=== PATIENT | female | born 2000 | race Caucasian/White ===

== ENCOUNTER → 2021-01-11 | Outpatient (CLI) | payer OTHER, SELFPAY ==
[2021-01-11 08:35] VITALS: BMI 30.8
[2021-01-13 12:56] LABS: HPV Reflexed? NOT INDICATED
== END | disposition home or self-care (01) ==
LOC: LABSPEC 12:29
PROVIDERS: PCP Family Medicine; Referring Provider Obstetrics & Gynecology; Visit Provider Obstetrics & Gynecology
DX: Z12.4 Encounter for screening for malignant neoplasm of cervix (principal)
CPT/HCPCS: 88175; G0145

== ENCOUNTER → 2023-02-22 | Outpatient (CLI) | payer OTHER, SELFPAY ==
--- NOTE | 2023-02-22 13:57 | US_ITS ---
STUDY: ULTRASOUND BREAST - RIGHT REASON FOR EXAM: Female, 22 years old. Possible right breast lump. TECHNIQUE: Axial and longitudinal images of the RIGHT breast were performed with a high resolution ultrasound transducer. # OF IMAGES: 29 COMPARISON: None. FINDINGS: RIGHT Breast: The upper outer quadrant of the right breast was examined with ultrasound. There is dense fibroglandular tissue. No sonographic abnormality is seen. US/Breast Limited Unilateral IMPRESSION: No sonographic abnormality is seen. ASSESSMENT CATEGORY: BIRADS Category 1: Negative. A letter regarding these results will be sent to the patient by the facility within 30 days. Electronically Signed: Srinivasan Rojas MD at 15:00 EDT ,
== END | disposition home or self-care (01) ==
PROVIDERS: PCP Family Medicine; Referring Provider Obstetrics & Gynecology; Visit Provider Obstetrics & Gynecology
DX: N63.10 Unspecified lump in the right breast, unspecified quadrant (principal)
CPT/HCPCS: 76642

== ENCOUNTER → 2024-01-19 | Outpatient (CLI) | payer OTHER, SELFPAY ==
[2024-01-22 21:07] LABS: Chlamydia By Nucleic Acid AMP Negative (Negative); Gonococcus By Nucleic Acid AMP Negative (Negative)
== END | disposition home or self-care (01) ==
LOC: LABSPEC 17:01
PROVIDERS: PCP Family Medicine; Referring Provider Obstetrics & Gynecology; Visit Provider Obstetrics & Gynecology
DX: Z34.90 Encounter for supervision of normal pregnancy, unspecified, unspecified trimester (principal)
CPT/HCPCS: 87086; 87088; 87491; 87591; 88175; G0145

== ENCOUNTER → 2024-01-30 | Outpatient (CLI) | payer OTHER, SELFPAY ==
[2024-01-30 16:04] LABS: Absolute Lymphocyte Count 2.17 X10^3/uL (0.83-4.51); Basophil# 0.04 X10^3/uL; Basophil% 0.4 % (0-1); Eosinophil# 0.05 X10^3/uL; Eosinophils% 0.6 % (0-5); Hematocrit 37.9 % (37-47); Hemoglobin 12.6 g/dL (12.0-15.0); Lymphocyte # 2.17 X10^3/ul (0.83-4.51); Lymphocyte % 24.1 % (19-41); Mean Corp Hgb Conc 33.2 g/dL (32-36); Mean Corpuscular Hgb 28.3 pg (27.0-32.0); Mean Platelet Vol. 11.1 fl (6.2-12.0); Monocyte# 0.77 X10^3/uL; Monocyte% 8.5 % (0-10); NRBC Flagged by Analyzer 0 % (0-5); Neutrophil # 5.96 X10^3/uL (2.7-7.7); Neutrophil % 66.2 % (47-70); POSITIVE COUNT YES; Platelet Count 231 K/mm3 (150-450); RBC Distribution Width CV 12.3 % (11.6-14.6); RBC Distribution Width SD 37.9 fl (35.1-43.9); Red Blood Count 4.46 M/mm3 (4.2-5.4)
[2024-01-30 16:08] LABS: Differential Indicated SCAN CRITERIA MET
[2024-01-30 16:30] LABS: Platelet Estimate ADEQUATE (ADEQ)
[2024-01-30 16:31] LABS: Anisocytosis RARE; Red Cell Morphology NORM C+C NORMAL (NORM C&C)
[2024-01-30 16:46] LABS: Hemoglobin A1c 4.8 % (3.8-5.6)
[2024-01-30 17:10] LABS: HIV - WCH Non-Reactive (Nonreactive); Hepatitis B Surface Antigen Non-Reactive (Nonreactive); Hepatitis C Antibody Non-Reactive (Nonreactive); Rubella IgG Reactive (Nonreactive); Syphilis Antibodies Non-reactive
== END | disposition home or self-care (01) ==
LOC: PAVLAB 15:30
PROVIDERS: PCP Family Medicine; Referring Provider Obstetrics & Gynecology; Visit Provider Obstetrics & Gynecology
DX: O99.210 Obesity complicating pregnancy, unspecified trimester (principal); Z3A.00 Weeks of gestation of pregnancy not specified
CPT/HCPCS: 36415; 83036; 85025; 86703; 86762; 86780; 86803; 86850; 86900; 86901; 87340

== ENCOUNTER → 2024-02-12 | Outpatient (CLI) | payer OTHER, SELFPAY ==
[2024-02-12 17:04] LABS: Absolute Lymphocyte Count 2.74 X10^3/uL (0.83-4.51); Absolute Neutrophil Count 5.8 X10^3/uL (2.0-7.7); Basophil# 0.03 X10^3/uL; Basophil% 0.3 % (0-1); Eosinophil# 0.08 X10^3/uL; Eosinophils% 0.9 % (0-5); Hemoglobin 12.1 g/dL (12.0-15.0); Lymphocyte # 2.74 X10^3/ul (0.83-4.51); Lymphocyte % 29.2 % (19-41); Mean Corp Hgb Conc 33.6 g/dL (32-36); Mean Corpuscular Hgb 28.9 pg (27.0-32.0); Mean Corpuscular Volume 85.9 fL (81-99); Mean Platelet Vol. 10.5 fl (6.2-12.0); Monocyte# 0.72 X10^3/uL; Monocyte% 7.7 % (0-10); NRBC Flagged by Analyzer 0 % (0-5); Neutrophil # 5.77 X10^3/uL (2.7-7.7); Neutrophil % 61.6 % (47-70); Platelet Count 244 K/mm3 (150-450); RBC Distribution Width CV 12.4 % (11.6-14.6); RBC Distribution Width SD 38.7 fl (35.1-43.9); Red Blood Count 4.19 M/mm3 (4.2-5.4); White Blood Count 9.4 K/mm3 (4.4-11.0)
== END | disposition home or self-care (01) ==
LOC: PAVLAB 15:51
PROVIDERS: PCP Family Medicine; Referring Provider Obstetrics & Gynecology; Visit Provider Obstetrics & Gynecology
DX: Z34.01 Encounter for supervision of normal first pregnancy, first trimester (principal)
CPT/HCPCS: 36415; 85025

== ENCOUNTER → 2024-05-06 | Outpatient (CLI) | payer OTHER, SELFPAY ==
[2024-05-06 09:06] LABS: Absolute Lymphocyte Count 1.66 X10^3/uL (0.83-4.51); Absolute Neutrophil Count 6.6 X10^3/uL (2.0-7.7); Basophil# 0.03 X10^3/uL; Basophil% 0.3 % (0-1); Eosinophil# 0.06 X10^3/uL; Eosinophils% 0.7 % (0-5); Hematocrit 33.7 % (37-47); Lymphocyte # 1.66 X10^3/ul (0.83-4.51); Lymphocyte % 18.3 % (19-41); Mean Corp Hgb Conc 32.6 g/dL (32-36); Mean Corpuscular Hgb 29.1 pg (27.0-32.0); Mean Corpuscular Volume 89.2 fL (81-99); Monocyte# 0.64 X10^3/uL; Monocyte% 7.1 % (0-10); NRBC Flagged by Analyzer 0 % (0-5); Neutrophil # 6.62 X10^3/uL (2.7-7.7); Neutrophil % 72.9 % (47-70); Platelet Count 224 K/mm3 (150-450); RBC Distribution Width CV 13.3 % (11.6-14.6); RBC Distribution Width SD 43.5 fl (35.1-43.9); Red Blood Count 3.78 M/mm3 (4.2-5.4); White Blood Count 9.1 K/mm3 (4.4-11.0)
[2024-05-06 09:47] LABS: Glucose Challenge Gest 1H 50g 104 mg/dL (70-140)
[2024-05-06 10:02] LABS: HIV - WCH Non-Reactive (Nonreactive); Syphilis Antibodies Non-reactive
== END | disposition home or self-care (01) ==
LOC: PAVLAB 08:34
PROVIDERS: PCP Family Medicine; Referring Provider Registered Nurse; Visit Provider Registered Nurse
DX: Z36.89 Encounter for other specified antenatal screening (principal); O99.212 Obesity complicating pregnancy, second trimester; Z3A.21 21 weeks gestation of pregnancy
CPT/HCPCS: 36415; 82950; 85025; 86703; 86780

== ENCOUNTER → 2024-08-01 | Outpatient (CLI) | payer OTHER, SELFPAY | END | disposition home or self-care (01) | LOC: LABSPEC 16:25 | PROVIDERS: PCP Family Medicine; Referring Provider Obstetrics & Gynecology; Visit Provider Obstetrics & Gynecology | DX: Z34.03 Encounter for supervision of normal first pregnancy, third trimester (principal) | CPT/HCPCS: 87077; 87081; 87186 ==

== ENCOUNTER 2024-08-30 07:29 | Inpatient (IN) | payer OTHER, SELFPAY ==
[2024-08-30] VITALS (36 sets, daily range): BP systolic 95–143; BP diastolic 54–89; PULSE 70–137; RESP 15–20; TEMP 36.8–37.3; O2SAT 79–100; BMI 37.3
--- NOTE | 2024-08-30 07:52 | HP.PCM.OB_ITS ---
HPI - General General Date of Admission: 08/30/24 Date of Service: 08/30/24 HPI Narrative AFSHIN HICKMAN, is a 24 F 41 weeks gestation who presents to unit for induction of labor. Maternal Data Information MADDIE Calculator Estimated Delivery Date Method Current WG Current Estimate 08/23/24 LMP (Certain) 41w 0d Final MADDIE: 08/23/24 Final MADDIE Source: US >20 weeks Gestational age: 41.0 PFSH PFSH Home Medications ?Medication ?Instructions ?Recorded ?Last Taken ?Type docosahexaenoic acid 200 mg 200 mg PO 01/05/24 08/29/24 21:00 History capsule ( DHA) 200 mg Allergy/AdvReac Type Severity Reaction Status Date / Time aloe Allergy Mild swelling Verified 08/30/24 07:27 Surgical History H/O wisdom tooth extraction Social History adopted: No household members: spouse current occupational status: employed 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 current occupational exposures/hazards: No pets and animals: Yes pets and animals: dog(s) and farm animals history of recent travel: Yes details: Jul 2023 - [place] out of country: Yes sexually active: Yes Smoking Status: Never smoker alcohol intake: current details: occasionally - not while substance use type: does not use well-balanced diet: daily or most days caffeine: Yes Type: coffee eating out: 1-3 times/week during the past year weight has: increased > 10 lbs what type of physical activity do you participate in: none seatbelt use: always do you feel safe at home: Yes additional social history: : Tomasz Samueltor History 1 Elective abortions Hx Para 0 Spontaneous abortions Hx # Term Pregnancies Ectopic pregnancies Hx # Pregnancies Multiple births # of living children 0 Visit Details Expected Delivery Route/Plan Labor Preferences- CB/BF classes: discussed labor support person: tomasz labor intervention preferences: Open pain management options preferred: [] cut cord/dad catch: cord : yes PP control planned: discussed discussed possible routes of delivery and associated risks: [] special requests: [] Plans Covid status: [] Flu vaccine: declines Tdap vaccine: given Rhogam: na LARC form signed: yes Problem list reviewed and updated with the most current plan of care details and appropriate orders placed. Relevant counseling for the gestational age provided. Continue routine care and follow up unless otherwise noted in visit notes/problem list details OB Flowsheet Initial Weight: 216 lb Date -?-?-?-?-?-?-?-?-?-?-?-?- EGA Weight BP Urine Prot -?-?-?-?-?-?-?-?-?-?-?-?- Glucose FHR FuHt Pres Dilation -?-?-?-?-?--?-?-?-?-?-?-?- Effaced St Visit Note 01/19/24 -?-?-?-?-?-?-?-?-?-?-?-?- 9w 0d 216 lb 8 oz (+8 oz) 128/78 -?-?-?-?-?-?-?-?-?-?-?-?- 168 -?-?-?-?-?-?-?-?-?-?-?-?- JV- undecided ab out NIPT. CRL is consistent with LMP. pap done today 02/14/24 -?-?-?-?-?-?-?-?-?-?-?-?- 12w 5d 214 lb 2 oz (-1 lb 14 oz) 126/82 Negative -?-?-?-?-?-?-?-?-?-?-?-?- Negative 170 -?-?-?-?-?-?-?-?-?-?-?-?- MH-No VB. Active IUP on US. Nausea improved. NIPT pending. Other PN labs ok 03/11/24 -?-?-?-?-?-?-?-?-?-?-?-?- 16w 3d 206 lb (-10 lb) 120/79 Negative -?-?-?-?-?-?-?-?-?-?-?-?- Negative 145 -?-?-?-?-?-?-?-?-?-?-?-?- KW- no vb/crampi ng. AFP declined. Anatomy US 04/04 MFM 04/12/24 -?-?-?-?-?-?-?-?-?-?-?-?- 21w 0d 208 lb (-8 lb) 111/77 Negative -?-?-?-?-?-?-?-?-?-?-?-?- Negative 154 20 -?-?-?-?-?-?-?-?-?-?-?-?- LC- LC- no vb/cramping. has 4 we ek growth for measuring 9 days behind. no other concerns today. 28 week labs ordered. 05/10/24 -?-?-?-?-?-?-?-?-?-?-?-?- 25w 0d 213 lb (-3 lb) 115/77 -?-?-?-?-?-?-?-?-?-?-?-?- 150 24 -?-?-?-?-?-?-?-?-?-?-?-?- Sm- no vb lof go od fm no regular ctx 05/28/24 -?-?-?-?-?-?-?-?-?-?-?-?- 27w 4d 216 lb (+0 oz) 121/81 Negative -?-?-?--?-?-?-?-?-?-?-?-?- Negative 150 28 -?-?-?-?-?-?-?-?-?-?-?-?- KW-no vb/lof/ctx . good fm passed glucose. LARC done. declines flu. possible Tdap next visit. 06/10/24 -?-?-?-?-?-?-?-?-?-?-?-?- 29w 3d 217 lb (+16 oz) 113/77 Negative -?-?-?-?-?-?-?-?-?-?-?-?- Negative 140 29 -?-?-?-?-?-?-?-?-?-?-?-?- KW- no vb/lof/ct x. good fm. tdap next visit. 06/27/24 -?-?-?-?-?-?-?-?-?-?-?-?- 31w 6d 224 lb (+8 lb) 121/73 Negative -?-?-?-?-?-?-?-?-?-?-?-?- Negative 155 32 Transverse -?-?-?-?-?-?-?-?-?-?-?-?- JV- no lof, vagi nal bleeding, or dec fm. tdap today. larc signed. 07/08/24 -?-?-?-?-?-?-?-?-?-?-?-?- 33w 3d 224 lb (+8 lb) 113/72 Negative -?-?-?-?-?-?-?-?-?-?-?-?- Negative 142 33 Breech -?-?-?-?-?-?-?-?-?-?-?-?- MH-No VB, LOF. G ood Fm. 07/23/24 -?-?-?-?-?-?-?-?-?-?-?-?- 35w 4d 226 lb 2 oz (+10 lb 2 oz) 131/80 Negative -?-?-?-?-?-?-?-?-?-?-?-?- Negative 145 35 Cephalic -?-?-?-?-?-?-?-?-?-?-?-?- SM- n vb lof goo d fm no regular ctx scanned at bedside 08/01/24 -?-?-?-?-?-?-?-?-?-?-?-?- 36w 6d 227 lb 4 oz (+11 lb 4 oz) 126/85 Negative -?-?-?-?-?-?-?-?-?-?-?-?- Negative 140 37 Cephalic 1 -?-?-?-?-?-?-?-?-?-?-?-?- KW- Work in for SM. No vb/lof/ctx. GBS today. good fm. 08/07/24 -?-?-?-?-?-?-?-?-?-?-?-?- 37w 5d 225 lb 4 oz (+9 lb 4 oz) 114/77 Negative -?-?-?-?-?-?-?-?-?-?-?-?- Negative 130 37 Cephalic 1 -?-?-?-?-?-?-?-?-?-?-?-?- 60 -2 KW- no vb/ lof/ctx. good fm. 08/16/24 -?-?-?-?-?-?-?-?-?-?-?-?- 39w 0d 228 lb (+12 lb) 126/82 Trace -?-?-?-?-?-?-?-?-?-?-?-?- Negative 135 39 Cephalic 1 .5 -?-?-?-?-?-?-?-?-?-?-?-?- 60 -2 LC- no lof /vb/ctx. good fm. 08/21/24 -?-?-?-?-?-?-?-?-?-?-?-?- 39w 5d 226 lb 6 oz (+10 lb 6 oz) 130/81 -?-?-?-?-?-?-?-?-?-?-?-?- 135 38 Cephalic 1.5 -?-?-?-?-?-?-?-?-?-?-?-?- 70 -2 JV- no lof , vaginal bleeding, or dec fm. no complaints. plan for 41 week IOL. return next monday for pelvic exam if still . 08/28/24 -?-?-?-?-?-?-?-?-?-?-?-?- 40w 5d 230 lb 4 oz (+14 lb 4 oz) 130/83 Negative -?-?-?-?-?-?-?-?-?-?-?-?- Negative 140 40 Cephalic 1 .5 -?-?-?-?-?-?-?-?-?-?-?-?- 70 -1 SM- no vb lof good fm NST FHR Rate Baby A Baseline: 140 Variability:: Moderate Accelerations:: 15 x 15 Decelerations:: None NST Reactive:: Yes FHR Category:: Category I Uterine Activity:: irregular ROS Constitutional Constitutional: Denies change in weight, fatigue, fever(s), headache(s), poor appetite or weakness Eyes Eyes: Denies blurry vision, change in vision, floaters, seeing flashes or spots in vision ENT HEENT: Denies dizziness, headache(s), loss taste/smell or sore throat Cardiovascular Cardiovascular: Denies chest pain, dizziness, dyspnea, irregular heart rhythm, lightheadedness, palpitations or rapid heart rate Respiratory/Chest Respiratory/Chest: Denies change in mental status, chest tightness, cough, dyspnea or breast pain Gastrointestinal Gastrointestinal: Denies anorexia, chewing difficulty, constipation, diarrhea or weight changes Genitourinary Genitourinary: Denies difficulty urinating, dysuria, flank pain, genital pain, urinary frequency or urinary urgency Musculoskeletal Musculoskeletal: Denies back pain, difficulty walking, extremity pain, joint pain, muscle cramps or muscle weakness Integumentary Integumentary: Denies lesions or unusual bruising Neurologic Neurologic: Denies abnormal movements, abnormal speech, dizziness, numbness, seizure-like activity, syncope or weakness Psychiatric Psychiatric: Denies behavioral changes, change in appetite, confusion, depression, homicidal ideation, suicidal ideation or suicidal thoughts Endocrine Endocrinology: Denies excessive sweating, polydipsia or polyuria Hematologic/Lymphatic Hematologic/Lymphatic: Denies anemia Allergic/Immunologic Allergic/Immunologic: Denies itchy eyes, lip swelling, throat swelling, tongue swelling or wheezing Vital Signs Vital Signs Vital Signs: 08/30/24 07:21 08/30/24 07:21 08/30/24 07:21 Temperature Temperature Source Temporal Pulse Rate 104 H Respiratory Rate Blood Pressure 142/86 H BP Systolic 142 BP Diastolic 86 Pulse Ox 08/30/24 07:21 08/30/24 07:21 08/30/24 07:21 Temperature 99.0 F Temperature Source Pulse Rate Respiratory Rate 16 Blood Pressure BP Systolic BP Diastolic Pulse Ox 98 Weight Weight: 231 lb 7.766 oz Body Mass Index (BMI) 37.3 Physical Exam Const alert, oriented x3 and no apparent distress General Appearance: cooperative Orientation / Consciousness: awake HEENT normocephalic Neck full ROM Lymph Lymphatic: no lymphadenopathy noted Chest inspection of chest normal Resp normal respiratory effort and normal air movement Effort and Inspection: able to speak in complete sentences and symmetric chest movement GI soft to palpation and non-tender Inspection: gravid Palpation: soft; Negative for tender external exam normal Manual OB Exam: dilated 2, effaced 80 and station -1 Back/Spine normal to inspection Extremity normal to inspection and full ROM Skin no rashes or lesions noted Psych mental status grossly normal Appearance: grossly normal Speech: normal speech Labs Labs Labs: Blood Type O POSITIVE Antibody Screen NEGATIVE Hct 33.7 % (37-47) L Hgb 11.0 g/dL (12.0-15.0) L Syphilis Total Ab Non-reactive Rubella IgG Antibody Reactive (Nonreactive) Hep Bs Antigen Non-Reactive (Nonreactive) Hepatitis C Antibody Non-Reactive (Nonreactive) Chlamydia DNA (JEFFRY) Negative (Negative) N.gonorrhoeae DNA (JEFFRY) Negative (Negative) HIV 1&2 Antibody Non-Reactive (Nonreactive) Glucose 1 Hr 50 gm 104 mg/dL (70-140) Assessment & Plan (1) Positive GBS test: COMMENT: treat in labor, PCN (2) Obesity affecting : QUALIFIERS: Trimester: second trimester Obesity type affecting : unspecified obesity Qualified Code(s): O99.212 - Obesity complicating , second trimester (3) Supervision of normal : QUALIFIERS: Normal : normal first Trimester: third trimester Qualified Code(s): Z34.03 - Encounter for supervision of normal first , third trimester COMMENT: PRR, , MADDIE 08/23/24, surprise : Tomasz (4) : QUALIFIERS: Weeks of gestation: 40 weeks Qualified Code(s): Z3A.40 - 40 weeks gestation of COMMENT: NIPT low risk, Discussed carrier testing (5) Encounter for induction of labor: PLAN: Patient presents IOL, plan management for with ortega bulb/pitocin/AROM. Pain management: plans epidural. GBS positive. Management of any complications: none I have reviewed the [facility] and made any clinically relevant updates. Dr Stevens aware of induction, plan and assessment. agrees with above Charges/Coding Multi Select Codes Urinary/Genital Urinary/Genital CPT Codes: No Charge
[2024-08-30] MEDS: Lactated Ringers 1,000 ML 50 ML IV ×2 (08:06→16:53)
[2024-08-30] MEDS: Oxytocin 15 Units/NS 250ml 15 UNITS/250 ML IV.SOLN 2 UNITS IV (08:28)
[2024-08-30] MEDS: 0.9% Normal Saline Single 100 ML IV.SOLN. INTRA-UTER (08:30)
[2024-08-30 08:35] LABS: Absolute Lymphocyte Count 2.13 X10^3/uL (0.83-4.51); Absolute Neutrophil Count 4.9 X10^3/uL (2.0-7.7); Basophil# 0.03 X10^3/uL; Basophil% 0.4 % (0-1); Eosinophil# 0.09 X10^3/uL; Eosinophils% 1.2 % (0-5); Hemoglobin 11.6 g/dL (12.0-15.0); Lymphocyte # 2.13 X10^3/ul (0.83-4.51); Lymphocyte % 27.4 % (19-41); Mean Corp Hgb Conc 33.1 g/dL (32-36); Mean Corpuscular Hgb 28.6 pg (27.0-32.0); Mean Corpuscular Volume 86.2 fL (81-99); Mean Platelet Vol. 11.1 fl (6.2-12.0); Monocyte# 0.62 X10^3/uL; NRBC Flagged by Analyzer 0 % (0-5); Neutrophil # 4.88 X10^3/uL (2.7-7.7); Neutrophil % 62.6 % (47-70); Platelet Count 200 K/mm3 (150-450); RBC Distribution Width CV 13.2 % (11.6-14.6); RBC Distribution Width SD 41.1 fl (35.1-43.9); Red Blood Count 4.06 M/mm3 (4.2-5.4); White Blood Count 7.8 K/mm3 (4.4-11.0)
[2024-08-30 09:31] LABS: Syphilis Antibodies Non-reactive
[2024-08-30] MEDS: Penicillin G Pot 5,000,000 UNITS in 0.9% Normal Saline (100mL MB+) 100 ML 150 UNITS IV (10:20)
--- NOTE | 2024-08-30 11:40 | PN_ITS ---
Progress Note Coping well with contractions current tracing: FHT: 130 Moderate variability reactive no decelerations category I tracing [place]: 2-3 minutes Contractions Membranes:AROM for clear at 1043 SVE:5/70/-1 A/P: Continue with position changes Titrate pitocin per protocol Epidural per anesthesia PCN for GBS prophylaxis Anticipate Dr Carpenter aware of above assessment and agrees with plan of care Assessment & Plan Assessment/Plan (1) Encounter for induction of labor: (2) Positive GBS test: (3) Obesity affecting : QUALIFIERS: Trimester: second trimester Obesity type affecting : unspecified obesity Qualified Code(s): O99.212 - Obesity complicating , second trimester (4) Supervision of normal : QUALIFIERS: Normal : normal first Trimester: third trimester Qualified Code(s): Z34.03 - Encounter for supervision of normal first , third trimester (5) : QUALIFIERS: Weeks of gestation: 40 weeks Qualified Code(s): Z3A.40 - 40 weeks gestation of Multi Select Codes Urinary/Genital Urinary/Genital CPT Codes: No Charge
[2024-08-30] MEDS: Penicillin G 3,000,000 Units 50 ML 100 UNITS IV ×3 (14:40→22:28)
[2024-08-30] MEDS: Lactated Ringers 1,000 ML 999 ML IV (16:14)
--- NOTE | 2024-08-30 17:12 | PN_ITS ---
Progress Note epidural just placed by anesthesia current tracing: FHT: 125 Moderate variability reactive no decelerations category I tracing [place]: 3-5 minutes Contractions Membranes:remains clear SVE:6/90/-1 on last exam A/P: Continue with position changes Titrate pitocin per protocol Epidural per anesthesia PCN for GBS prophylaxis Anticipate Dr Carpenter aware of above assessment and agrees with plan of care Assessment & Plan Assessment/Plan (1) Encounter for induction of labor: (2) Positive GBS test: (3) Obesity affecting : QUALIFIERS: Trimester: second trimester Obesity type affecting : unspecified obesity Qualified Code(s): O99.212 - Obesity complicating , second trimester (4) Supervision of normal : QUALIFIERS: Normal : normal first Trimester: third trimester Qualified Code(s): Z34.03 - Encounter for supervision of normal first , third trimester (5) : QUALIFIERS: Weeks of gestation: 40 weeks Qualified Code(s): Z3A.40 - 40 weeks gestation of Multi Select Codes Urinary/Genital Urinary/Genital CPT Codes: No Charge
[2024-08-30] MEDS: fentaNYL-bupivacaine (epidural) 100 ML BAG EPIDURAL ×2 (17:18→21:26)
[2024-08-30] MEDS: Lactated Ringers 1,000 ML 200 ML IV (21:25)
[2024-08-31] VITALS (33 sets, daily range): BP systolic 108–139; BP diastolic 65–83; PULSE 69–99; RESP 15–18; TEMP 36.6–37.8; O2SAT 80–100
[2024-08-31] MEDS: fentaNYL-bupivacaine (epidural) 100 ML BAG EPIDURAL (01:58)
[2024-08-31] MEDS: Penicillin G 3,000,000 Units 50 ML 100 UNITS IV (02:26)
[2024-08-31] MEDS: Lactated Ringers 1,000 ML 200 ML IV (03:06)
--- NOTE | 2024-08-31 03:56 | PN_ITS ---
Progress Note comfortable with epidural current tracing: FHT: 135 Moderate variability reactive no decelerations category I tracing [place]: 2-4 Contractions Membranes: remains clear SVE:9.5/90/+1 A/P: Continue with position changes Titrate pitocin per protocol Epidural per anesthesia PCN for GBS prophylaxis Anticipate Dr Carpenter aware of above assessment and agrees with plan of care Assessment & Plan Assessment/Plan (1) Encounter for induction of labor: (2) Positive GBS test: (3) Obesity affecting : QUALIFIERS: Trimester: second trimester Obesity type affecting : unspecified obesity Qualified Code(s): O99.212 - Obesity complicating , second trimester (4) Supervision of normal : QUALIFIERS: Normal : normal first Trimester: third trimester Qualified Code(s): Z34.03 - Encounter for supervision of normal first , third trimester (5) : QUALIFIERS: Weeks of gestation: 40 weeks Qualified Code(s): Z3A.40 - 40 weeks gestation of Multi Select Codes Urinary/Genital Urinary/Genital CPT Codes: No Charge
--- NOTE | 2024-08-31 05:57 | PCM.PN.BLA ---
Progress Note comfortable with epidural current tracing: FHT: 130 Moderate variability reactive no decelerations category I tracing [place]: 2-4 minutes Contractions Membranes:remains clear SVE:10/100/+2 pushing well with contractions and noting decent. A/P: Continue with position changes Titrate pitocin per protocol Epidural per anesthesia PCN for GBS prophylaxis Anticipate Dr Carpenter aware of above assessment and agrees with plan of care Assessment & Plan Assessment/Plan (1) Encounter for induction of labor: (2) Positive GBS test: (3) Obesity affecting : QUALIFIERS: Trimester: second trimester Obesity type affecting : unspecified obesity Qualified Code(s): O99.212 - Obesity complicating , second trimester (4) Supervision of normal : QUALIFIERS: Normal : normal first Trimester: third trimester Qualified Code(s): Z34.03 - Encounter for supervision of normal first , third trimester (5) : QUALIFIERS: Weeks of gestation: 40 weeks Qualified Code(s): Z3A.40 - 40 weeks gestation of Multi Select Codes Urinary/Genital Urinary/Genital CPT Codes: No Charge
[2024-08-31] MEDS: Oxytocin 15 Units/NS 250ml 15 UNITS/250 ML IV.SOLN 22 UNITS IV (06:20)
[2024-08-31] MEDS: Methylergonovine 0.2 MG/ML Ampul IM (07:21)
--- NOTE | 2024-08-31 07:41 | EX.PCM.OBVAG ---
Assessment & Plan (1) Vaginal delivery: COMMENT: KW IOL 41.1 Girl [place] (2) Encounter for induction of labor: (3) Positive GBS test: COMMENT: treat in labor, PCN (4) Obesity affecting : QUALIFIERS: Trimester: second trimester Obesity type affecting : unspecified obesity Qualified Code(s): O99.212 - Obesity complicating , second trimester (5) Supervision of normal : QUALIFIERS: Normal : normal first Trimester: third trimester Qualified Code(s): Z34.03 - Encounter for supervision of normal first , third trimester COMMENT: PRR, , MADDIE 08/23/24, surprise : Tomasz (6) : QUALIFIERS: Weeks of gestation: 40 weeks Qualified Code(s): Z3A.40 - 40 weeks gestation of COMMENT: NIPT low risk, Discussed carrier testing Maternal Data Information MADDIE Calculator Estimated Delivery Date Method Current WG Current Estimate 08/23/24 LMP (Certain) 41w 1d Final MADDIE: 08/23/24 Final MADDIE Source: US >20 weeks Gestational age: 41.1 Vaginal Delivery Maternal Presentation Maternal Presentation: Medically Indicated Induction Maternal Presentation: Presented to unit for induction of labor for postdates Type of Induction: Pitocin, [place] Bulb and Amniotomy Medical Reason for Induction: Post term Vaginal Delivery Information Procedure Performed: Spontaneous Vaginal Delivery Surgeon/Practitioner: Maria C Colvin Date of Procedure: 08/31/24 Pre-Procedure Diagnosis: see problem list Post-Procedure Diagnosis: same Type of anesthesia: Epidural Estimated Blood Loss: 300 Time of Delivery: 07:15 Findings Description of procedure: Progressed well to 10cm dilated and made steady progress with effective maternal pushing. Delivered the head in [place] presentation. The head was delivered atraumatically and a loose nuchal cord was identified and delivered through. The anterior and posterior shoulders delivered without complication followed by the rest of the and the was placed on the maternal abdomen. Delayed cord clamping was employed for approximately 3 minutes. Cord was clamped and cut and gentle traction was applied to the cord and the placenta delivered spontaneously. Immediately following, it was noted to be intact with a 3 vessel cord. Uterine bleeding brisk. Pitocin and Methergine given. uterine sweep performed and clot extracted. The perineum and vagina were inspected and noted to have a second degree laceration which was repaired with 3-0 Vicryl in the usual fashion. EBL was 300cc. Patient and tolerated delivery well. Apgars 8/9. Dr Stevens notified of vaginal delivery and orders reviewed. Physician agrees with current plan of care. 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
--- NOTE | 2024-08-31 07:46 | DCINST_ITS ---
Discharge Instructions Diet Discharge Diet: No restrictions DC O2, CPAP, BIPAP needs Additional Home O2 Discharge instructions: No Dressing / Incision Discharge Activity: Return to Normal Activity May resume sexual activity in: 6-8 weeks Dressing / Incision Call your doctor if you observe: Fever of 101 or Higher, Coldness, Increased Pain, Numbness or Tingling, Change in Color, Inability to urinate, Inability to have a bowel movement, Using more than 1 pad per hour, Shortness of breath, Dizziness, Fainting spells, Swelling in the ankles, Chest pain, Increased palpitations (irregular heartbeat), Calf discomfort and Uncontrolled pain Follow Up Care Please Follow Up With: Maria C Colvin CNM When: Please call the office to schedule your follow up appointment in 6 weeks. If you had high blood pressure please call to schedule an appointment in 2 weeks. Test Results: Test results from this visit will be discussed in further detail at your follow- up appointment, if applicable. Discharge Plan Admission Admit Date/Time: 08/30/24 07:29 Attending Provider: Maria C Colvin Primary Care Provider: Gavi Solis Discharge Orders/Prescriptions Prescriptions: No Action DHA 200 mg capsule 200 mg PO Referrals / Follow Up: Gavi Solis MD [Primary Care Provider] -
[2024-08-31] MEDS: Oxytocin 15 Units/NS 250ml 15 UNITS/250 ML IV.SOLN 83 UNITS IV (07:49)
[2024-08-31] MEDS: Ibuprofen 600 MG Tablet PO ×2 (10:00→17:41)
[2024-09-01 00:33] VITALS: BP 121/65; PULSE 93; RESP 16
[2024-09-01] MEDS: Ibuprofen 600 MG Tablet PO ×2 (00:37→08:27)
[2024-09-01 06:18] VITALS: BP 120/67; PULSE 68; RESP 16
[2024-09-01 08:16] VITALS: BP 131/89; PULSE 79; PULSE 81; RESP 16; TEMP 36.8; O2SAT 97
--- NOTE | 2024-09-01 10:44 | PN.OBGYN_ITS ---
Subjective Subjective Patient doing well without complaints. Tolerating PO. Ambulating and voiding without difficulty. Feeding well. Denies chest pain, shortness of breath, calf pain/swelling, fevers, chills, lightheadedness. Objective Data Objective Data Vital Signs: Vital Signs Temp Pulse Resp BP Pulse Ox O2 Del Method 98.3 F 81 16 131/89 H 97 Room Air 09/01/24 08:16 09/01/24 08:16 09/01/24 08:16 09/01/24 08:16 09/01/24 08:16 09/01/24 08:16 Oxygen Delivery Method Room Air Weight: 231 lb 7.766 oz Body Mass Index (BMI) 37.3 Intake & Output: Intake and Output for Last 24 Hours 08/30/24 08/31/24 09/01/24 23:59 23:59 23:59 Intake Total 2042.47 / 2042.47 2615.54 / 2615.54 Output Total 500 / 500 1700 / 1700 300 / 300 Balance 1542.47 / 1542.47 915.54 / 915.54 -300 / -300 Lab / Micro Data Attestation: I reviewed the patient's lab results. 08/30/24 08:00 ROS Constitutional Constitutional: Reports systems reviewed and no addt'l complaints, except as documented; Denies anorexia or headache(s) Cardiovascular Cardiovascular: Reports systems reviewed and no addt'l complaints, except as documented; Denies dizziness, dyspnea, nausea or tachypnea Respiratory/Chest Respiratory/Chest: Reports systems reviewed and no addt'l complaints, except as documented; Denies cough, dyspnea, shortness of breath at rest or tachypnea Gastrointestinal Gastrointestinal: Reports systems reviewed and no addt'l complaints, except as documented; Denies abdominal pain, constipation or nausea Genitourinary Genitourinary: Reports systems reviewed and no addt'l complaints, except as documented; Denies burning urination, difficulty urinating, dysuria, urinary frequency or urinary incontinence Musculoskeletal Musculoskeletal: Reports systems reviewed and no addt'l complaints, except as documented Integumentary Integumentary: Reports systems reviewed and no addt'l complaints, except as documented Neurologic Neurologic: Reports systems reviewed and no addt'l complaints, except as documented; Denies abnormal speech, dizziness or headache(s) Psychiatric Psychiatric: Reports systems reviewed and no addt'l complaints, except as documented Endocrine Endocrinology: Reports systems reviewed and no addt'l complaints, except as documented Hematologic/Lymphatic Hematologic/Lymphatic: Reports systems reviewed and no addt'l complaints, except as documented Physical Exam Const alert, oriented x3 and no apparent distress Neck full ROM Resp normal respiratory effort, normal air movement and no retractions Effort and Inspection: able to speak in complete sentences and symmetric chest movement GI soft to palpation Bladder / Kidney Exam: bladder normal to palpation Uterus Palpation: uterus fundus firm Extremity normal to inspection and full ROM Psych mental status grossly normal, thought process normal and cooperative Assessment & Plan (1) Vaginal delivery: COMMENT: KW IOL 41.1 Girl [place] PLAN: s/p PPD # 1 1. routine post delivery care 2. breast feeding- support given 3. rh positive 4. rubella immune 5. Discharge home (2) Encounter for induction of labor: (3) Positive GBS test: COMMENT: treat in labor, PCN (4) Obesity affecting : QUALIFIERS: Trimester: second trimester Obesity type affecting : unspecified obesity Qualified Code(s): O99.212 - Obesity complicating , second trimester (5) Supervision of normal : QUALIFIERS: Normal : normal first T rimester: third trimester Qualified Code(s): Z34.03 - Encounter for supervision of normal first , third trimester COMMENT: PRR, , MADDIE 08/23/24, surprise : Tomasz (6) : QUALIFIERS: Weeks of gestation: 40 weeks Qualified Code(s): Z 3A.40 - 40 weeks gestation of COMMENT: NIPT low risk, Discussed carrier testing Charges/Coding Multi Select Codes Urinary/Genital Urinary/Genital CPT Codes: No Charge
== END 2024-09-01 12:00 | disposition home or self-care (01) | DRG 806 ==
PROVIDERS: Admitting Provider Advanced Practice Midwife; PCP Family Medicine; Referring Provider Advanced Practice Midwife; Visit Provider Advanced Practice Midwife
DX: O48.0 Post-term pregnancy (principal); Z37.0 Single live birth; O72.1 Other immediate postpartum hemorrhage; O99.214 Obesity complicating childbirth; O69.81X0 Labor and delivery complicated by cord around neck, without compression, not applicable or unspecified; O99.820 Streptococcus B carrier state complicating pregnancy; Z3A.41 41 weeks gestation of pregnancy; O70.1 Second degree perineal laceration during delivery
CPT/HCPCS: 59025; 59050; 85025; 86780; 86850; 86900; 86901; 99221; J7120; G0378

== ENCOUNTER → 2024-09-03 | Outpatient (CLI) | payer OTHER, SELFPAY ==
--- NOTE | 2024-09-03 12:57 | VDLE_ITS ---
Reason For Study: Lt Calf Pain RIGHT LEFT CFV is compressible, spontaneous, phasic, GSV is normal. competent and demonstrates normal CFV is compressible, spontaneous, phasic, augmentation. competent, and demonstrates normal Procedure augmentation. This is a venous duplex using B-mode, color FV is compressible, spontaneous, phasic, flow and spectral Doppler. competent and demonstrates normal Exam performed in department. augmentation. A preliminary report was called and/or faxed POP V is compressible, spontaneous, phasic, to [facility]. competent and demonstrates normal augmentation. T/P Trunk is compressible. PTV is compressible. LT PerV is compressible. Lt GastrocV is DILATED and NON COMPRESSIBLE consistent with acute DVT. VL/Venous Duplex US, Unilateral Interpretation Summary Acute deep vein thrombosis is noted in the left gastrocnemius vein. Ordering Physician: Evelina Napoles Referring Physician: Gavi Solis Performed By: Joanne Larkin, [place], RVT
== END | disposition home or self-care (01) ==
LOC: CVS 12:54
PROVIDERS: PCP Family Medicine; Referring Provider Nurse Practitioner Women's Health; Visit Provider Nurse Practitioner Women's Health
DX: M79.662 Pain in left lower leg (principal); I82.90 Acute embolism and thrombosis of unspecified vein
CPT/HCPCS: 93971

== ENCOUNTER → 2024-09-10 | Outpatient (CLI) | payer OTHER, SELFPAY ==
--- NOTE | 2024-09-10 09:54 | VDLE_ITS ---
Reason For Study: Swelling RIGHT LEFT CFV is compressible, spontaneous, phasic, GSV is normal. competent and demonstrates normal CFV is compressible, spontaneous, phasic, augmentation. competent, and demonstrates normal Procedure augmentation. This is a venous duplex using B-mode, color FV is compressible, spontaneous, phasic, flow and spectral Doppler. competent and demonstrates normal Exam performed in department. augmentation. Exam compared to previous study done on POP V is compressible, spontaneous, phasic, 09/03/24. competent and demonstrates normal augmentation. T/P Trunk is compressible. PTV is compressible. LT PerV is compressible. Acute deep vein thrombosis is noted in the Gastrocnemius V. It is dilated and NONCOMPRESSIBLE. VL/Venous Duplex US, Unilateral Interpretation Summary Acute deep vein thrombosis is noted in the left gastrocnemius vein. Negative fo r propagation. Ordering Physician: Helena Wiley Referring Physician: Gavi Solis M.D. Performed By: Julian Lao RVT and Student
== END | disposition home or self-care (01) ==
LOC: CVS 09:54
PROVIDERS: PCP Family Medicine; Referring Provider Physician Assistant; Visit Provider Physician Assistant
DX: I82.409 Acute embolism and thrombosis of unspecified deep veins of unspecified lower extremity (principal); M79.662 Pain in left lower leg
CPT/HCPCS: 93971

== ENCOUNTER → 2024-10-14 | Outpatient (CLI) | payer OTHER, SELFPAY ==
--- NOTE | 2024-10-14 07:52 | VDLE_ITS ---
Reason For Study: LLE Swelling / HX DVT RIGHT LEFT FV is compressible, spontaneous, phasic, GSV is normal. competent and demonstrates normal CFV is compressible, spontaneous, phasic, augmentation. competent, and demonstrates normal Procedure augmentation. This is a venous duplex using B-mode, color FV is compressible, spontaneous, phasic, flow and spectral Doppler. competent and demonstrates normal Exam performed in department. augmentation. The exam was diagnostic. POP V is compressible, spontaneous, and Compare to Study 09/10/2024. phasic. T/P Trunk is compressible. PTV is compressible. LT PerV is compressible. Acute deep vein thrombosis is noted in the Gastrocnemius V. It is dilated and NONCOMPRESSIBLE. VL/Venous Duplex US, Unilateral Interpretation Summary Acute deep vein thrombosis is noted in the left gastrocnemius vein. Negative for propagation Ordering Physician: Helena Wiley Referring Physician: Gavi Solis M.D. Performed By: Julian Lao RVT
== END | disposition home or self-care (01) ==
PROVIDERS: PCP Family Medicine; Referring Provider Physician Assistant; Visit Provider Physician Assistant
DX: I82.409 Acute embolism and thrombosis of unspecified deep veins of unspecified lower extremity (principal); M79.662 Pain in left lower leg
CPT/HCPCS: 93971